=== PATIENT | male | born 1990 | race Caucasian/White ===

== ENCOUNTER 2018-01-06 16:51 | Emergency (ER) | payer OTHER ==
[~2018-01-06] VITALS: Ht 190.5 cm; Wt 65.8 kg
[2018-01-06] MEDS ORDERED: NORT75 PO (16:57)
[2018-01-06] MEDS ORDERED: Zofran Odt4 MG PO (17:48)
[2018-01-06 18:05] LABS: Calcium, Ionized (POC) 1.11 mmol/L (1.10-1.46); Chloride (POC) 103 mmol/L (98-108); Creatinine (POC) 0.7 mg/dL (0.8-1.3); Glucose (ISTAT POC) 86 mg/dL (70-99); Hemoglobin (POC) 14.6 g/dL (13.5-17.5); Potassium (POC) 3.8 mmol/L (3.5-5.5); Sodium (POC) 138 mmol/L (135-148); Total CO2 (POC) 25 mmol/L (21-32)
== END 2018-01-06 18:27 | disposition home or self-care (01) ==
LOC: ER 16:51
PROVIDERS: Emergency Medicine
DX: K52.9 Noninfective gastroenteritis and colitis, unspecified (principal); F32.9 Major depressive disorder, single episode, unspecified; Z79.899 Other long term (current) drug therapy; Z87.891 Personal history of nicotine dependence
CPT/HCPCS: 80047; 85014; 99283